=== PATIENT | female | born 1985 | race African-American/Black ===

== ENCOUNTER 2017-02-04 06:49 | Emergency (ER) | payer OTHER ==
--- NOTE | ~2017-02-04 | EKG ---
PATIENT: SANTANA JOE UNIT #: [id number] Ventricular Rate: 80 BPM Atrial Rate: 80 BPM P-R Interval: 138 ms QRS Duration: 76 ms Q-T Interval: 384 ms QTC Calculation(Bezet): 442 ms P Derby: 72 degrees Calculated R Derby: 64 degrees Calculated T Derby: 59 degrees Diagnosis Line: Normal sinus rhythm with sinus arrhythmia Diagnosis Line: Normal ECG Diagnosis Line: No previous ECGs available Diagnosis Line: Confirmed by CONSUELO FELDMAN MD ([id number]) on Diagnosis Line: 02/05/2017 4:32:46 PM INTERPRETING MD: GASTON MIRANDA
--- NOTE | ~2017-02-04 | CR72 ---
[facility] A Service of [facility] & [facility] RADIOLOGY TEXT RESULTS PATIENT: SANTANA JOE LOCATION: [facility] : [birth year] UNIT #: [id number] AGE: [address]: Claude Montes MD SEX: F ORDER DR: [id number] [facility] [address] [place], [place] [address] [id number] MR#: [id number] Acc #: [id number] NAME: SANTANA JOE : 1985 SEX: F STUDY DATE/TIME: 02/04/2017 6:48 UNIT: [facility] ROOM: STUDY DESCRIPTION: CR Chest Single View Portable Attending Physician: Claude Montes M.D. Ordering Physician: Claude Montes M.D. Primary Care Physician: No Primary Care Physician MEDICAL IMAGING REPORT This report is preliminary unless electronic signature is present EXAM Portable chest 02/04/2017 HISTORY Shortness of air and chest pain for 4 days. COMPARISON Chest 02/19/2013. FINDINGS Frontal chest demonstrates clear lungs. No pleural effusion or pneumothorax. Heart size and mediastinum are normal. Pulmonary vasculature normal. IMPRESSION No acute cardiopulmonary findings. Dictated by... Tomas Rodriguez M.D. THIS IS AN ELECTRONICALLY VERIFIED REPORT Tomas Rodriguez M.D. at 02/05/2017 6:38 PM DEMETRICE/mary TD: 02/04/2017 09:02 JOB #: [id number] MEDICAL IMAGING REPORT Page 1 of 1 COPY
== END 2017-02-04 08:35 | disposition home or self-care (01) ==
LOC: CED 06:49
DX: J45.901 Unspecified asthma with (acute) exacerbation (principal)
CPT/HCPCS: 71010; 93005; 94640; 99284